=== PATIENT | female | born 1960 | race Caucasian/White ===

== ENCOUNTER 2020-03-02 06:28 | Day surgery (SDC) | payer MEDICARE, MEDICAID ==
[~2020-03-02] VITALS: Ht 170.2 cm; Wt 67.6 kg
[~2020-03-02 06:28] MED LIST: BUDE10.23 IH; BUPR150T6 PO; CARV3.12 PO; CYAN100087 PO; ESCI20TA29 PO; HYDR-4383 PO; LIDO700A5 TOP; LORA1TAB PO; MAGN400C PO; MONT10TA21 PO; OMEG1CAP PO; OXYC-138 PO; PROG100C11 PO; ROSU10TA2 PO; TIOT18CA7 IH
[2020-03-02 06:50] VITALS: BP 120/72
[2020-03-02] MEDS ORDERED: normal saline 1000ml 1,000 ML IV SCH (06:50)
[2020-03-02] MEDS ORDERED: ASPI81TA52 PO (06:57)
[2020-03-02] MEDS ORDERED: PANT-47 PO (06:57)
[2020-03-02] MEDS ORDERED: ARIP5TAB14 PO (06:58)
[2020-03-02] MEDS ORDERED: METF500T PO (06:59)
[2020-03-02 07:00] VITALS: BP 117/81
[2020-03-02] MEDS ORDERED: heparin sodium, porcine/PF 100unit/ml 5ML syringe ONE (08:08)
[2020-03-02] MEDS ORDERED: midazolam 2 mg/2 ml injection ONE (08:09)
[2020-03-02] MEDS ORDERED: fentaNYL/PF 50MCG/1 ML 2ML syringe ONE (08:09)
[2020-03-02] MEDS ORDERED: LIDOcaine 1%/PF 5ML 10 MG/ML VIAL ONE (08:10)
[2020-03-02 09:35] VITALS: BP 120/77
[2020-03-02 09:48] VITALS: BP 120/73
[2020-03-02 10:00] VITALS: BP 108/80
--- NOTE | 2020-03-02 10:30 | NUR ---
Dc instructions given, pt verbalized understanding. Procedure site stable and VSS. DC"d to home via WC.
== END 2020-03-02 10:30 | disposition home or self-care (01) ==
LOC: SSTAY O 06:28
PROVIDERS: ATTEND Radiology Vascular & Interventional Radiology
DX: C34.12 Malignant neoplasm of upper lobe, left bronchus or lung (principal); I10 Essential (primary) hypertension; Z88.5 Allergy status to narcotic agent; Z86.73 Personal history of transient ischemic attack (TIA), and cerebral infarction without residual deficits; Z90.49 Acquired absence of other specified parts of digestive tract; Z90.710 Acquired absence of both cervix and uterus; Z72.89 Other problems related to lifestyle; Z79.82 Long term (current) use of aspirin; Z79.899 Other long term (current) drug therapy; Z82.49 Family history of ischemic heart disease and other diseases of the circulatory system
CPT/HCPCS: 36561; 76937; 77001; 82948; 99152; 99153; C1769; C1788; C1894; J1642; J2250; J3010; J7030; A9270